=== PATIENT | female | born 1955 | race Caucasian/White ===

== ENCOUNTER → 2018-10-13 08:55 | Outpatient (CLI) | payer BC, SELFPAY ==
--- NOTE | 2018-10-13 08:59 | MM_ITS ---
MM Dig screening mamm BI w/CAD CAD Screening COMPARISON: Digital mammograms with CAD 02/24/2017 and 02/18/2016 INDICATION: There is a history of breast cancer in patient's mother diagnosed before menopause. TECHNIQUE: Standard CC and MLO images were obtained. R2 CAD reviewed. FINDINGS: Moderate somewhat heterogenic fibroglandular densities are seen in the central portions of both breast and the findings are bilateral and symmetrical. There is no suspicious lesion and there are no suspicious microcalcifications. IMPRESSION: Moderate breast density with no suspicious lesion seen BI-RADS Category: 1 Negative RECOMMENDED FOLLOW-UP: 1YR - 1 YEAR FOLLOW-UP (A letter has been sent to the patient regarding results of the study.)
== END ==
PROVIDERS: PCP Nurse Practitioner Family; Visit Provider Nurse Practitioner Family
DX: Z12.31 Encounter for screening mammogram for malignant neoplasm of breast (principal)
CPT/HCPCS: 77067

== ENCOUNTER → 2019-08-23 09:04 | Outpatient (CLI) | payer BC, SELFPAY ==
[2019-08-23 15:17] LABS: Basophils # 0.1 K/mm3 (0-0.2); Basophils % 0.9 % (0.1-2.0); Eosinophils # 0.1 K/mm3 (0.0-0.4); Eosinophils % 1.9 % (0.1-12.0); Hematocrit 38.2 % (37.0-47.0); Lymphocytes # 1.5 K/mm3 (0.7-4.5); Lymphocytes % 23.2 % (10-50); Mean Corpuscular HGB Conc 31.3 g/dL (31.8-35.4); Mean Corpuscular Hemoglobin 27.9 pg (27.0-31.2); Mean Platelet Volume 8.7 fl (7.4-10.4); Monocytes # 0.5 K/mm3 (0.1-1.0); Monocytes % 7.9 % (1.7-9.3); Neutrophils # 4.3 K/mm3 (1.8-7.8); Neutrophils % 66.1 % (37.0-80.0); Platelet Count 344 K/mm3 (142-424); Red Blood Count 4.29 M/mm3 (4.20-5.40); Red Cell Distribution Width 13.7 % (11.5-17.5); White Blood Count 6.5 K/mm3 (4.8-10.8)
[2019-08-23 15:30] LABS: Alanine Aminotransferase 19 U/L (12-78); Albumin Level 4.4 g/dl (3.5-5.0); Albumin/Globulin Ratio 1.8 (1.1-1.8); Alkaline Phosphatase 60 U/L (38-126); Anion Gap 9.1 mEq/L (5-15); Aspartate Amino Transferase 23 U/L (14-36); Bilirubin,Total 0.4 mg/dl (0.2-1.3); Blood Urea Nitrogen 19 mg/dl (7-17); Calcium 9.7 mg/dl (8.4-10.2); Carbon Dioxide 32 mmol/L (22.0-30.0); Chloride 102 mmol/L (98-107); Chol/HDL Ratio 2.1 (1-3.5); Cholesterol 132 mg/dl (140-200); Estimated Glomerular Filt Rate 73 ml/min (>60); GFR (African American) 88 ML/MIN (>60); Globulin 2.4 g/dL (1.3-3.2); Glucose 105 mg/dl (74-100); HDL Cholesterol 63 mg/dl (40-60); Potassium 4.1 mmoL/L (3.5-5.1); Sodium 139 mmol/L (136-145); Total Protein,Serum 6.8 g/dl (6.3-8.2); Triglycerides 69 mg/dl (30-150); VLDL Cholesterol 14 mg/dL (0-40)
[2019-08-23 16:00] LABS: Thyroid Stimulating Hormone 1.67 uIU/mL (0.465-4.68)
[2019-08-23 21:06] LABS: Direct LDL Cholesterol 78.56 mg/dL (100-129)
== END ==
PROVIDERS: Visit Provider Nuclear Medicine Nuclear Cardiology
DX: I48.92 Unspecified atrial flutter (principal)
CPT/HCPCS: 36415; 80053; 80061; 84443; 85025

== ENCOUNTER → 2019-10-24 10:22 | Outpatient (CLI) | payer BC, SELFPAY ==
--- NOTE | 2019-10-24 10:26 | MM_ITS ---
PROCEDURE: MM DIG SCREENING MAMM BI W/CAD Digital Breast Tomosynthesis Included CLINICAL INDICATION: SCREENING There is a history of breast cancer in the patient's mother diagnosed in her 50s. COMPARISON: DMSB DIG MAMM-SCREEN SIGRID from 02/18/2016 DMSB DIG MAMM-SCREEN SIGRID W/CAD from 02/24/2017 DIG MAMM-SCREEN SIGRID from 10/13/2018 TECHNIQUE: Standard CC and MLO images and 3D Tomosynthesis was obtained. R2 CAD reviewed. FINDINGS: Moderate somewhat heterogenic fibroglandular densities are seen in the central portions of both breasts there is a benign-appearing calcification left breast. There is no suspicious lesion and no suspicious microcalcifications. IMPRESSION: Moderate breast density with no suspicious lesions seen BI-RAD Category: 2 Benign Finding(s) FOLLOW-UP: 1YR 1 Year Follow-up (A letter has been sent to the patient regarding results of the study.) Dictated by: Dr. Kaveh Barragan MD 10/26/2019 16:[address] Kaveh Barragan MD in [place] 10/26/2019 16:38
== END ==
PROVIDERS: PCP Nurse Practitioner Family; Visit Provider Nurse Practitioner Family
DX: Z12.31 Encounter for screening mammogram for malignant neoplasm of breast (principal)
CPT/HCPCS: 77063; 77067

== ENCOUNTER 2019-12-27 16:00 | Outpatient (RCR) | payer BC, SELFPAY | END 2019-12-27 17:00 | disposition home or self-care (01) | LOC: PT.CARL 16:00 | PROVIDERS: Visit Provider Anesthesiology Pain Medicine | DX: M43.16 Spondylolisthesis, lumbar region (principal) | CPT/HCPCS: 97033; 97035; 97110; 97116; 97140; 97163; 97164 ==

== ENCOUNTER 2020-04-02 17:00 | Outpatient (RCR) | payer BC, SELFPAY | END 2020-04-02 18:00 | disposition home or self-care (01) | LOC: PT.CARL 17:00 | PROVIDERS: PCP Nurse Practitioner Family; Visit Provider Anesthesiology Pain Medicine | DX: M48.061 Spinal stenosis, lumbar region without neurogenic claudication (principal) | CPT/HCPCS: 97110; 97140; 97163 ==

== ENCOUNTER → 2020-09-05 14:12 | Outpatient (CLI) | payer BC, SELFPAY ==
[2020-09-05 16:04] LABS: Chloride 105 mmol/L (98-107); Potassium 4.3 mmoL/L (3.5-5.1); Sodium 139 mmol/L (136-145)
[2020-09-05 16:06] LABS: Alanine Aminotransferase 21 U/L (12-78); Aspartate Amino Transferase 26 U/L (14-36); Blood Urea Nitrogen 20 mg/dl (7-17); Estimated Glomerular Filt Rate 85 ml/min (>60); GFR (African American) 102 ML/MIN (>60)
[2020-09-05 16:07] LABS: Albumin Level 4.5 g/dl (3.5-5.0); Albumin/Globulin Ratio 1.9 (1.1-1.8); Alkaline Phosphatase 81 U/L (38-126); Anion Gap 10.3 mEq/L (5-15); Bilirubin,Total 0.7 mg/dl (0.2-1.3); Calcium 9.2 mg/dl (8.4-10.2); Carbon Dioxide 28 mmol/L (22.0-30.0); Chol/HDL Ratio 2.6 (1-3.5); Cholesterol 152 mg/dl (140-200); Globulin 2.4 g/dL (1.3-3.2); Glucose 96 mg/dl (74-100); HDL Cholesterol 58 mg/dl (40-60); Total Protein,Serum 6.9 g/dl (6.3-8.2); Triglycerides 77 mg/dl (30-150); VLDL Cholesterol 15 mg/dL (0-40)
[2020-09-05 16:18] LABS: Direct LDL Cholesterol 73.48 mg/dL (100-129)
== END ==
PROVIDERS: Visit Provider Nurse Practitioner Family
DX: I10 Essential (primary) hypertension (principal); E78.2 Mixed hyperlipidemia
CPT/HCPCS: 80053; 80061

== ENCOUNTER 2020-10-31 11:00 | Outpatient (RCR) | payer BC, SELFPAY | END 2020-11-27 11:05 | disposition home or self-care (01) | LOC: PT.CARL 11:00 | PROVIDERS: PCP Nurse Practitioner Family; Visit Provider Orthopaedic Surgery | DX: M16.12 Unilateral primary osteoarthritis, left hip; Z96.642 Presence of left artificial hip joint | CPT/HCPCS: 97010; 97110; 97116; 97140; 97163 ==

== ENCOUNTER → 2020-11-06 10:22 | Outpatient (CLI) | payer BC, SELFPAY ==
--- NOTE | 2020-11-06 10:26 | MM_ITS ---
PROCEDURE: MM DIG SCREENING MAMM BI W/CAD Digital Breast Tomosynthesis Included CLINICAL INDICATION: SCREENING COMPARISON: MG DMSB DIG MAMM-SCREEN SIGRID W/CAD from 02/24/2017 MG DIG MAMM-SCREEN SIGRID from 10/13/2018 MG MM DIG SCREENING MAMM BI W/CAD from 10/24/2019 TECHNIQUE: Standard CC and MLO images and 3D Tomosynthesis was obtained. R2 CAD reviewed. FINDINGS: There is average fibroglandular tissue. No malignant appearing mass or malignant-appearing microcalcification. No skin thickening or architectural distortion. IMPRESSION: Negative. No change with no evidence of malignancy BI-RAD Category: 1 Negative FOLLOW-UP: 1 YR 1 Year Follow-up (A letter has been sent to the patient regarding results of the study.) Dictated by: Yadiel Hodge MD 11/09/2020 18:16 Yadiel Hodge MD in [place] 11/09/2020 18:16
== END ==
PROVIDERS: PCP Nurse Practitioner Family; Visit Provider Nurse Practitioner Family
DX: Z12.31 Encounter for screening mammogram for malignant neoplasm of breast (principal)
CPT/HCPCS: 77063; 77067

== ENCOUNTER → 2021-01-30 16:54 | Outpatient (CLI) | payer BC, SELFPAY ==
[2021-01-30 17:04] LABS: Basophils # 0.1 K/mm3 (0-0.2); Basophils % 0.7 % (0.1-2.0); Eosinophils # 0.1 K/mm3 (0.0-0.4); Eosinophils % 1.7 % (0.1-12.0); Hematocrit 42.2 % (37.0-47.0); Lymphocytes # 1.5 K/mm3 (0.7-4.5); Lymphocytes % 19.5 % (10-50); Mean Corpuscular HGB Conc 30.9 g/dL (31.8-35.4); Mean Corpuscular Hemoglobin 28.1 pg (27.0-31.2); Mean Corpuscular Volume 91.1 fl (81-99); Mean Platelet Volume 8.7 fl (7.4-10.4); Monocytes # 0.6 K/mm3 (0.1-1.0); Monocytes % 7.5 % (1.7-9.3); Neutrophils # 5.3 K/mm3 (1.8-7.8); Neutrophils % 70.6 % (37.0-80.0); Platelet Count 365 K/mm3 (142-424); Red Blood Count 4.63 M/mm3 (4.20-5.40); Red Cell Distribution Width 13.4 % (11.5-17.5); White Blood Count 7.6 K/mm3 (4.8-10.8)
[2021-01-30 17:31] LABS: Chloride 103 mmol/L (98-107); Sodium 143 mmol/L (136-145)
[2021-01-30 17:32] LABS: Potassium 4.1 mmoL/L (3.5-5.1)
[2021-01-30 17:34] LABS: Alanine Aminotransferase 20 U/L (12-78); Albumin Level 3.7 g/dl (3.5-5.0); Alkaline Phosphatase 83 U/L (38-126); Anion Gap 12.1 mEq/L (5-15); Aspartate Amino Transferase 27 U/L (14-36); Bilirubin,Total 0.2 mg/dl (0.2-1.3); Blood Urea Nitrogen 12 mg/dl (7-17); Carbon Dioxide 32 mmol/L (22.0-30.0); Estimated Glomerular Filt Rate 101 ml/min (>60); GFR (African American) 122 ML/MIN (>60)
[2021-01-30 17:35] LABS: Albumin/Globulin Ratio 1.4 (1.1-1.8); Calcium 8.9 mg/dl (8.4-10.2); Globulin 2.6 g/dL (1.3-3.2); Glucose 95 mg/dl (74-100); Total Protein,Serum 6.3 g/dl (6.3-8.2)
[2021-01-30 18:11] LABS: Ferritin 36.8 ng/ml (11.1-264)
== END ==
PROVIDERS: Visit Provider Nurse Practitioner Family
DX: K92.1 Melena (principal)
CPT/HCPCS: 80053; 82728; 85025

== ENCOUNTER → 2021-11-14 08:26 | Outpatient (CLI) | payer MEDICARE, SELFPAY ==
--- NOTE | 2021-11-14 08:27 | MM_ITS ---
PROCEDURE INFORMATION: Exam: MG Bilateral Screening 3D Mammography Exam date and time: 11/14/2021 8:23 AM Age: 66 years old Clinical indication: Screening mammogram. TECHNIQUE: Imaging protocol: Bilateral Screening tomosynthesis and 2D mammography including computer-aided detection (CAD) when performed. COMPARISON: 1. MG MM DIG SCREENING MAMM BI W/CAD 11/06/2020 10:26 AM 2. MG MM DIG SCREENING MAMM BI W/CAD 10/24/2019 10:52 AM 3. MG DIG MAMM-SCREEN SIGRID 10/13/2018 9:19 AM 4. MG DMSB DIG MAMM-SCREEN SIGRID W/CAD 02/24/2017 5:02 PM FINDINGS: MAMMOGRAPHY: Breast composition: There are scattered areas of fibroglandular density. Mass: None. Architectural distortion: No new or suspicious architectural distortion. Calcifications: No new or suspicious calcifications are present Asymmetric density: No new or suspicious asymmetric density is present Skin thickening: None. Axillary adenopathy: None. IMPRESSION: No mammographic evidence of malignancy. Recommend annual screening mammography unless otherwise clinically indicated. ASSESSMENT: BI-RADS category 1: Negative
== END ==
PROVIDERS: PCP Nurse Practitioner Family; Visit Provider Nurse Practitioner Family
DX: Z12.31 Encounter for screening mammogram for malignant neoplasm of breast (principal)
CPT/HCPCS: 77063; 77067

== ENCOUNTER → 2022-01-13 10:51 | Outpatient (CLI) | payer MEDICARE, SELFPAY | PROVIDERS: PCP Nurse Practitioner Family; Visit Provider Surgery | DX: Z01.812 Encounter for preprocedural laboratory examination (principal); Z20.822 Contact with and (suspected) exposure to COVID-19; Z12.11 Encounter for screening for malignant neoplasm of colon | CPT/HCPCS: C9803; U0003; U0005 ==

== ENCOUNTER 2022-01-14 07:06 | Day surgery (SDC) | payer MEDICARE, SELFPAY ==
[2022-01-10 14:45] VITALS: BMI 26.2
[2022-01-14] VITALS (7 sets, daily range): BP systolic 107–124; BP diastolic 60–82; PULSE 62–75; RESP 16; TEMP 36.1–36.3; O2SAT 96–100
--- NOTE | 2022-01-14 07:49 | P.PN_ITS ---
[facility] Medical History Anxiety Colonoscopy planned Fibromyalgia History of gastroesophageal reflux (GERD) Hyperlipidemia Hypertension Menopause Sleep apnea Surgical History History of hip replacement, total History of hysterectomy Family History Mother Breast cancer Grandmother Diabetes type 2, controlled Father Lung cancer Social History (Updated 01/14/22 @ 07:37 by Melinda Frost, RN) Smoking Status: Never smoker alcohol intake: never substance use type: denies use current occupational status: retired Travel in the last 8 weeks: None caffeine: No [facility] Anesthesia Checklist Patient Identification Patient Identification: Arm Band Structural Data Admitted From: Home Planned Operative Procedure/s: colonoscopy Consent for Planned Operative Procedure(s) Verified: Yes Verified Documents: Surgical Consent and History and Physical NPO Status Verified Time NPO: 00:00 Additional verifications Anesthesia Reactions: No Airway Assessment C-Spine Mobility Assessed: Yes TMJ Mobility Assessed: Yes Dentition: Good Dentition Neurological Assessment Level of Consciousness: Awake and Alert Anesthesia Plan Anesthesia Risk discussed: Yes Anesthesia Plan: Verified ASA Class: II Anesthesia Type: MAC
--- NOTE | 2022-01-14 08:31 | HMH.SCOPE ---
Procedure: Date: 01/14/22 Patient Date of :: 1955 Procedure Performed:: Colonoscopy with polypectomy Indications:: Screening Performing Provider:: Steven Luna MD Referring Provider:: . Sedation:: Monitored anesthesia care Procedure:: After informed consent was obtained the patient was taken to the endoscopy suite. Sedation ensued after the patient was transferred to the left lateral decubitus position. Pulse, blood pressure, and oxygen saturation were monitored throughout the procedure. Digital rectal exam revealed no significant abnormality. The colonoscope was placed in position. The entire colon was evaluated. The colonoscope was carefully removed and the patient was transferred to recovery in stable condition. Please see findings and specimens below for detail. Findings:: Bowel preparation fair Hemorrhoidal cushions/tags Severe sigmoid tortuosity Moderate to severe lack of relaxation Sessile cecal polyp Specimens:: Sessile cecal polyp (cold snare and cold biopsy forceps) Recommendations:: Consider barium enema secondary to fairly profound sigmoid tortuosity and fairly significant lack of relaxation Repeat colonoscopy is pending pathology but will likely be around 3 years. Complications:: No immediate Estimated blood obtained (mL): 1
== END 2022-01-14 09:26 | disposition home or self-care (01) ==
PROVIDERS: PCP Nurse Practitioner Family; Visit Provider Surgery
PROC: 0DJD8ZZ Inspection of Lower Intestinal Tract, Via Natural or Artificial Opening Endoscopic (ICD-10-PCS; principal; 2022-01-14 08:00)
DX: Z12.11 Encounter for screening for malignant neoplasm of colon (principal); D12.0 Benign neoplasm of cecum; Z79.899 Other long term (current) drug therapy
CPT/HCPCS: 45380; 45385

== ENCOUNTER 2022-01-25 13:54 | Emergency (ER) | payer MEDICARE, SELFPAY ==
[2022-01-25 14:40] VITALS: BP 131/84; PULSE 85; RESP 19; TEMP 37.2; O2SAT 98; BMI 25.9
--- NOTE | 2022-01-25 15:16 | EXP.UTC ---
Discharge Plan Disposition Patient Disposition: Home, Self-Care Condition: Good Prescriptions Prescriptions: New azithromycin [Zithromax Z-Héctor] 250 mg tablet See Rx Instructions .ROUTE .COMPLEX 5 Days Qty: 6 0RF Rx Instructions: For 250 mg dose pack: take 500 mg today (day 1), then 250 mg for 4 days (days 2-5) No Action buspirone 5 mg Tablet 5 mg PO BID bisoprolol fumarate 5 mg Tablet 5 mg PO DAILY omeprazole 20 mg Capsule,Delayed Release(Dr/Ec) 20 mg PO DAILY rosuvastatin 5 mg Tablet 5 mg PO DAILY bupropion HCl 300 mg Tablet Extended Release 24 Hr 300 mg PO DAILY gabapentin 300 mg Tablet 300 mg PO BID Referrals Follow up/Referrals: Cristela Frost APRN [Primary Care Provider] - See instructions Activity Restrictions/Add. Instructions Additional Instructions/Restrictions: *Monitor Temp, Over the counter Motrin or Tylenol as directed/as needed Tylenol every 4 hours and Motrin every 6 hours (as long as your family doctor has told you that you can take it) for fever or pain. and straight to ER if unable to lower temp less than 101.0 after medication given *Warm salt water gargles may help to soothe the throat *Throat Lozenges? *Warm fluids like tea with honey may help to soothe the throat? *Sleep elevated *Humidifier/Vaporizer Follow up IMMEDIATELY for new or worsening symptoms or no Noticeable improvement over the next 48-72 hours. 911 for difficulty breathing or swallowing Clinical Impressions Clinical Impression: URI (upper respiratory infection) Qualifiers: URI type: unspecified URI Qualified Code(s): J06.9 - Acute upper respiratory infection, unspecified Instructions Patient Instructions: Sore Throat, DI for Nasal Congestion Discharge ED Provider: Yadira Truong [facility] General Stated complaint: HANSON, Head congestion, cough Mode of Arrival: Ambulatory Source of Information: Patient Limitations: No Limitations Time Seen by Provider: 01/25/22 15:16 Description of Symptoms (Recalled from Triage Doc. by RN): PATIENT C/O HEDACHE, SINUS PRESSURE, COUGH, AND BODY ACHES SINCE YESTERDAY HEENT Symptoms (Recalled from RN notes): No Resp Symptoms (Recalled from RN notes): Yes Skin Symptoms (Recalled from RN notes): No MS Symptoms (Recalled from RN notes): No Functional Status (Recalled from RN notes): WNL History of Present Illness Provider Complaint: Patient states that she has been having scratchy throat, sinus congestion cough and body aches since yesterday that has continued to get worse States that today she was feeling pressure behind her eyes and feeling worse States that she had COVID test yesterday but results not back yet but home test was negative States that she came in hoping to get a shot to help her Related Data Home Medications Medication Instructions Recorded Confirmed bisoprolol fumarate 5 mg tablet 5 mg PO DAILY High blood pressure 01/10/22 01/22/22 bupropion HCl 300 mg 24 hr tablet, 300 mg PO DAILY anxiety 01/10/22 01/22/22 extended release buspirone 5 mg tablet 5 mg PO BID Anxiety 01/10/22 01/22/22 gabapentin 300 mg tablet 300 mg PO BID Pain 01/10/22 01/22/22 omeprazole 20 mg capsule,delayed 20 mg PO DAILY GERD 01/10/22 01/22/22 release rosuvastatin 5 mg tablet 5 mg PO DAILY Cholesterol 01/10/22 01/22/22 Previous Rx's Medication Instructions Recorded azithromycin 250 mg tablet See Rx Instructions PO .COMPLEX 5 01/25/22 (Zithromax Z-Héctor) days #6 tabs Allergies Allergy/AdvReac Type Severity Reaction Status Date / Time No Known Drug Allergies Allergy Unknown Verified 01/22/22 10:03 [NO KNOWN DRUG ALLERGIES] Worker's Comp Is this a Worker's Comp case?: No PFSH PFSH Medical History (Updated 01/25/22 @ 15:25 by Yadira Truong APRN) Anxiety Colonoscopy planned Fibromyalgia History of gastroesophageal reflux (GERD) Hyperlipidemia Hypertension Menopause Sleep apnea Surgical
[2022-01-25 15:42] VITALS: BP 131/84; PULSE 85; RESP 19; TEMP 37.2; O2SAT 98
== END 2022-01-25 16:05 | disposition home or self-care (01) ==
PROVIDERS: Emergency Provider Nurse Practitioner; PCP Nurse Practitioner Family
DX: J06.9 Acute upper respiratory infection, unspecified (principal)
CPT/HCPCS: 96372; 99212; G0463; J0696

== ENCOUNTER → 2022-03-21 07:57 | Outpatient (CLI) | payer MEDICARE, SELFPAY ==
--- NOTE | 2022-03-21 07:57 | FL_ITS ---
FINAL REPORT CLINICAL HISTORY: f/u polyps, unsuccessful colonoscopy ft: 4:39 FINDINGS: BARIUM ENEMA HISTORY: Incomplete colonoscopy, history of colon polyps. PROCEDURE: Barium contrast was instilled via a rectal catheter into the patient's colon via gravity drip. Spot and overhead films were performed. FINDINGS: Pow[employer] Blender [employer] Pourer film demonstrates postoperative changes of total left hip arthroplasty. Powder Blender [employer] Pourer film is otherwise unremarkable. Patient has a redundant colon. There is spasm noted on some images in the left colon. There is no constricting or obstructing lesion identified to the level of the cecum. Postevacuation images are unremarkable. FLUOROSCOPY TIME: 4 minutes 39 seconds. IMAGE NUMBER: 32 IMPRESSION: No mass or stricture identified. Reviewed, Interpreted and Dictated by Jaden Almazan III, MD Transcribed by Rylee Samuel PA-C Authenticated and [facility]
== END ==
PROVIDERS: PCP Nurse Practitioner Family; Visit Provider Surgery
DX: K63.5 Polyp of colon (principal)
CPT/HCPCS: 74270

== ENCOUNTER → 2023-02-23 10:28 | Outpatient (CLI) | payer MEDICARE, SELFPAY ==
--- NOTE | 2023-02-23 10:45 | MM_ITS ---
PROCEDURE INFORMATION: Exam: MG Bilateral Screening 3D Mammography Exam date and time: 02/23/2023 10:35 AM Age: 67 years old Clinical indication: Screening examination TECHNIQUE: Imaging protocol: Bilateral Screening tomosynthesis and 2D mammography including computer-aided detection (CAD) when performed. COMPARISON: 1. MG MM DIG SCREENING MAMM BI W/CAD 11/14/2021 8:23 AM 2. MG MM DIG SCREENING MAMM BI W/CAD 11/06/2020 10:26 AM FINDINGS: MAMMOGRAPHY: Breast composition: The breasts are heterogeneously dense, which may obscure small masses. Mass: None. Architectural distortion: None. Calcifications: No suspicious calcifications. Asymmetric density: None. Skin thickening: None. Axillary adenopathy: None. IMPRESSION: No mammographic evidence of malignancy. Annual screening is recommended unless otherwise clinically indicated. ASSESSMENT: BI-RADS Category 1: Negative
== END ==
PROVIDERS: PCP Nurse Practitioner Family; Visit Provider Nurse Practitioner Family
DX: Z12.31 Encounter for screening mammogram for malignant neoplasm of breast (principal)
CPT/HCPCS: 77063; 77067

== ENCOUNTER 2023-09-23 13:33 | Emergency (ER) | payer OTHER, SELFPAY ==
--- NOTE | 2023-09-23 13:37 | ECG_ITS ---
APPROVED REPORT Exam: Resting ECG HR:82 bpm ECG Measurements Heart Rate 82 AXES MA 145 P 40 QRSd 145 QRS 61 QT 416 T 8 QTc 455 Conclusion SINUS RHYTHM RIGHT BUNDLE BRANCH BLOCK [120+ ms QRS DURATION, UPRIGHT V1, 40+ ms S IN I/aVL/V4/V5/V6] ABNORMAL ECG UNCONFIRMED REPORT Electronically signed by : Roland Mckeon, 09/23/2023 15:38:28
[2023-09-23 13:42] VITALS: BMI 26.5
[2023-09-23 13:52] VITALS: BP 145/88; PULSE 90; RESP 20; TEMP 36.8; O2SAT 98
[2023-09-23 13:58] VITALS: BP 145/88; PULSE 82; O2SAT 99
[2023-09-23 14:01] VITALS: BP 154/93; PULSE 86; O2SAT 97
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
--- NOTE | 2023-09-23 14:14 | PC.NURSE ---
pt going with RAD
[2023-09-23 14:19] LABS: Chloride 105 mmol/L (98-107); Potassium 3.9 mmoL/L (3.5-5.1); Sodium 140 mmol/L (136-145)
[2023-09-23 14:22] LABS: Alanine Aminotransferase 33 U/L (12-78); Albumin Level 3.8 g/dl (3.5-5.0); Albumin/Globulin Ratio 1.5 (1.1-1.8); Alkaline Phosphatase 69 U/L (38-126); Anion Gap 10.9 mEq/L (5-15); Aspartate Amino Transferase 33 U/L (14-36); Bilirubin,Total 0.4 mg/dl (0.2-1.3); Blood Urea Nitrogen 18 mg/dl (7-17); Calcium 9.1 mg/dl (8.4-10.2); Carbon Dioxide 28 mmol/L (22.0-30.0); Creatinine Clearance Estimated 59 mL/min (50-200); Estimated Glomerular Filt Rate 72 ml/min (>60); GFR (African American) 87 ML/MIN (>60); Globulin 2.5 g/dL (1.3-3.2); Glucose 131 mg/dl (74-100); Lipase 59 U/L (23-300); Total Protein,Serum 6.3 g/dl (6.3-8.2)
[2023-09-23 14:23] LABS: Basophils # 0.1 K/mm3 (0-0.2); Basophils % 0.9 % (0.1-2.0); Eosinophils # 0.1 K/mm3 (0.0-0.4); Hematocrit 40.1 % (37.0-47.0); Lymphocytes # 1.9 K/mm3 (0.7-4.5); Lymphocytes % 27.5 % (10-50); Mean Corpuscular HGB Conc 32.5 g/dL (31.8-35.4); Mean Corpuscular Hemoglobin 29.3 pg (27.0-31.2); Mean Corpuscular Volume 89.9 fl (81-99); Mean Platelet Volume 8.2 fl (7.4-10.4); Monocytes # 0.4 K/mm3 (0.1-1.0); Neutrophils # 4.3 K/mm3 (1.8-7.8); Neutrophils % 63.6 % (37.0-80.0); Platelet Count 355 K/mm3 (142-424); Red Blood Count 4.46 M/mm3 (4.20-5.40); Red Cell Distribution Width 14.3 % (11.5-17.5); White Blood Count 6.8 K/mm3 (4.8-10.8)
[2023-09-23] MEDS: SODIUM CHLORIDE 0.9% 10ML SYR (RAD ONLY) 10 ML IV (14:26)
[2023-09-23] MEDS: 0.9 % SODIUM CHLORIDE 50 ML VIAL 100 ML IV (14:26)
[2023-09-23] MEDS: IOPAMIDOL-370 (76%);100ML BOTTLE 140 ML IV (14:26)
[2023-09-23] MEDS: LACTATED RINGERS 1000ML 1,000 ML 999 ML IV (14:27)
[2023-09-23] MEDS: MORPHINE 4MG/ML SYRINGE 4 MG IV (14:27)
[2023-09-23] MEDS: ONDANSETRON 4MG/2ML VIAL 4 MG IV (14:27)
[2023-09-23 14:28] LABS: Activated Partial Thrombo Time 23.1 seconds (22.8-30.6); INR 0.96 (0.9-1.1); Prothrombin Time 10.4 seconds (10.1-12.5)
[2023-09-23 14:48] LABS: Troponin I < 0.01 ng/ml (0.00-0.034)
[2023-09-23 14:57] LABS: Microscopic, Urine URINE MICROSCOPIC (MICROSCOPIC)
[2023-09-23 15:01] LABS: Appearance,Urine CLEAR (Clear); Bilirubin,Urine Negative (Negative); Blood, Urine Negative (Negative); Color,Urine YELLOW (Yellow); Glucose,Urine (UA) Negative (Negative); Ketones,Urine Negative (Negative); Leukocyte Esterase,Urine Negative (Negative); Nitrate,Urine Negative (Negative); PH,Urine 6.5 (5.0-8.5); Protein,Urine Negative (Negative); Urobilinogen,Urine 0.2 EU/dl (0.2)
[2023-09-23 16:51] VITALS: BP 162/94; PULSE 85; RESP 16; TEMP 36.7
== END 2023-09-23 16:59 | disposition home or self-care (01) ==
PROVIDERS: Student in an Organized Health Care Education/Training Program; Emergency Provider Emergency Medicine; PCP Nurse Practitioner Family
DX: R07.9 Chest pain, unspecified (principal); I45.19 Other right bundle-branch block; M79.632 Pain in left forearm; M79.661 Pain in right lower leg; M79.662 Pain in left lower leg; K21.9 Gastro-esophageal reflux disease without esophagitis; I10 Essential (primary) hypertension; E78.5 Hyperlipidemia, unspecified; V49.40XA Driver injured in collision with unspecified motor vehicles in traffic accident, initial encounter; Y92.410 Unspecified street and highway as the place of occurrence of the external cause
CPT/HCPCS: 70450; 70496; 70498; 71275; 72125; 72128; 72131; 74174; 80053; 81001; 83690; 84484; 85025; 85610; 85730; 93005; 96361; 96374; 96375; 99285; J2270; J2405; J7120; Q9967

== ENCOUNTER 2024-05-13 10:58 | Outpatient (CLI) | payer MEDICARE, SELFPAY ==
--- NOTE | 2024-05-13 | MM_ITS ---
PROCEDURE INFORMATION: Exam: MG Bilateral Screening 3D Mammography Exam date and time: 05/13/2024 11:05 AM Age: 68 years old Clinical indication: Screening examination TECHNIQUE: Imaging protocol: Bilateral Screening tomosynthesis and 2D mammography including computer-aided detection (CAD) when performed. COMPARISON: 1. MG MM DIG SCREENING MAMM BI W/CAD 02/23/2023 10:35 AM 2. MG MM DIG SCREENING MAMM BI W/CAD 11/14/2021 8:23 AM FINDINGS: MAMMOGRAPHY: Breast composition: The breasts are heterogeneously dense, which may obscure small masses. Mass: No suspicious masses. Architectural distortion: None. Calcifications: No suspicious calcifications. Asymmetric density: None. Skin thickening: None. Axillary adenopathy: None. IMPRESSION: No mammographic evidence of malignancy. Annual screening is recommended unless otherwise clinically indicated. ASSESSMENT: BI-RADS Category 1: Negative.
== END 2024-05-13 23:59 | disposition home or self-care (01) ==
LOC: RAD 10:58
PROVIDERS: PCP Nurse Practitioner Family; Visit Provider Nurse Practitioner Family
DX: Z12.31 Encounter for screening mammogram for malignant neoplasm of breast (principal)
CPT/HCPCS: 77063; 77067

== ENCOUNTER 2024-11-12 10:43 | Outpatient (CLI) | payer MEDICARE, SELFPAY ==
--- OUTSIDE RECORDS SUMMARY | 2024-09-20 11:00 | XMS_ITS | Encounter Summary ---
[facility] Address [address] [place] [address] Care Team Providers Care Medical Physics Researcher Name Role Phone Cristela Frost APRN Primary Care Provid er Reason for Referral * Durable Medical Equipment (Routine) - Authorized Specialty Diagnoses / Procedures Referred By Ramona myles Referred To Contact Diagnoses DORIAN (obstructive sleep apnea) Procedures PAP Therapy Alexandra Manzano APRN [address] [place] [address] Phone: tel: fax: [place] [address] Phone: tel: fax: Referral ID Status Reason Start Date Expiration Date V isits Requested Visits Authorized [id number] Authorized 09/20/2024 12/20/2025 1 1 Reason for Visit * Reason Comments Sleep Apnea Pt states that she g ot a new pap machine in 2022. She is needing a supply order. Encounter Details Date Type Department Care Team (Late Contact Info) Description 09/20/2024 11:00 AM EDT Office Visit [facility] [address] [place] [phone] Alexandra Manzano APRN [address] [place] [address] DORIAN (obstructive sleep apnea); Primary hypertension Social History Tobacco Use Types Packs/Day Years Used Date Smoking Tobacco: Never Smokeless Tobacco: Never Alcohol Use Standard Drinks/Week Comments Defer 0 (1 standard drink = 0.6 oz pur e alcohol) PHQ-2 Answer Date Recorded Retired Total Score 0 07/17/2020 Comments No Sex and Gender Information Value Date Recorded Sex Assigned at Not on file Legal Sex Female 1:38 PM EDT Gender Identity Not on file Sexual Orientation Not on file documented as of this encounter Last Filed Vital Signs Vital Sign Reading Time Taken Comments Blood Pressure 122/76 09/20/2024 11:10 AM EDT Pulse 62 09/20/2024 11:10 AM EDT Temperature - - Respiratory Rate - - Oxygen Saturation 100% 09/20/2024 11:10 AM EDT Inhaled Oxygen Concentration - - Weight 71.5 kg (157 lb 9.6 oz) 09/20/2024 11:10 AM EDT Height 157.5 cm (5' 2 ) 09/20/2024 11:10 AM EDT Body Mass Index 28.83 09/20/2024 11:10 AM EDT documented in this encounter Progress Notes * Alexandra Manzano APRN - 09/20/2024 4:09 PM EDTAssociated Problem(s): HTN (hypertension) Hypertension is stable and controlled Continue current treatment regimen. Blood pressure will be reassessed in 1 year. * Alexandra Manzano APRN - 09/20/2024 4:09 PM EDTAssociated Problem(s): DORIAN (obstructive sleep apnea) Benefiting from PAP therapy. Plan to continue. * Alexandra Manzano APRN - 09/20/2024 11:00 AM EDT Images from the original note were not included. Date: 09/20/2024 Name: Hailey Greenfield : 1955 PCP: Cristela Frost APRN Sleep and/or Cardiology Consulting Note History of Present Illness Hailey Greenfield is a 68 y.o. female who presents today for Sleep Apnea (Pt states that she got a newpap machine in 2022. She is needing a supply order. ) -DL good -1 yr DORIAN -[facility] Reports Denies Excessive daytime sleepiness [] [x] Snoring [] [x] Traffic accidents or near missed related to sleepiness [] [x] Feels like QOL has improved due to treatment [x] [] Machine, Mask, airflow Comfortable and working well? [x] [] Using pap machine? [x] [] Using oxygen at night? [] [x] Provider feels patient is benefiting from pap therapy [x] [] Provider sent supply order to DME of choice [x] [] Provider made pressure changes today [] [x] Cardiology and sleep related problem list 1. DORIAN-baseline AHI of 12 07/27/2012 2. Hyperlipidemia 3. Hypertension 4. Pulmonary hypertension 5. Anxiety 6. Palpitations 7. Shortness of air 8. GERD 9. Non-smoker 08/02/2019 echo-normal EF 08/02/2019 Holter 07/11/2019 overnight pulse ox 07/27/2012 sleep study Lifestyle interventions to improve sleep apnea include sleeping on your side, using a bed wedge to slightly raise the head of your bed, avoiding alcohol/sedatives/heavy meals, exercising and losing weight (if needed), as well as practicing good sleep hygiene. Serious risks are associated with sleep apnea such as increased risk for car and work accidents, sleep , medical risks, and surgical risks. Always tell your healthcare providers/surgeons you have sleep apnea before having surgery.The complex interaction of sleep disorders with numerous disease processes including hypertension, insulin resistance-diabetes, obesity, weight gain and mood disorders were reviewed. Relationship between untreated sleep disorders and cardiovascular events, including life-threatening arrhythmias, coronary artery disease, congestive heart failure, and pulmonary hypertension, neurological sequela (such as dementia) and decreased life longevity. To see the most benefit from your pap machine therapy you need to use your machine over 70% of the night each month and over 4 hours 70% of the time. This also make your insurance happy. Treatment options include pap machine, Inspire, and other surgical interventions. NEVER DRIVE TIRED. The patient's relevant past medical, surgical, family, and social history reviewed and updated in [facility] as appropriate. Medications Discontinued During This Encounter Medication Reason meloxicam (MOBIC) 15 MG tablet *Therapy completed tiZANidine (ZANAFLEX) 2 MG tablet *Therapy completed No Known Allergies Current Outpatient Medications: aspirin 81 MG EC tablet, Take 1 tablet by mouth 2 (Two) Times a Day., Disp: 60 tablet, Rfl: 0 bisoprolol (ZEBeta) 5 MG tablet, Take 1 tablet by mouth Daily., Disp: , Rfl: buPROPion XL (WELLBUTRIN XL) 300 MG 24 hr tablet, Take 1 tablet by mouth Daily., Disp: , Rfl: busPIRone (BUSPAR) 10 MG tablet, Take 1 tablet by mouth Every 12 (Twelve) Hours., Disp: , Rfl: busPIRone (BUSPAR) 5 MG tablet, Take 1 tablet by mouth 2 (Two) Times a Day As Needed. Prn anxiety, Disp: , Rfl: Dietary Management Product (Rheumate) capsule, Once daily (Patient taking differently: Take 1 capsule by mouth Daily. Once daily), Disp: 30 capsule, Rfl: 5 gabapentin (NEURONTIN) 300 MG capsule, Take 1 capsule by mouth 2 (two) times a day., Disp: 60 capsule, Rfl: 2 omeprazole (PriLOSEC) 20 MG capsule, Take 1 capsule by mouth Daily., Disp: , Rfl: rosuvastatin (CRESTOR) 5 MG tablet, Take 1 tablet by mouth every night at bedtime., Disp: , Rfl: Past Medical History: Diagnosis Date Anxiety and depression Extremity pain GERD (gastroesophageal reflux disease) Hyperlipidemia Hypertension Joint pain Lumbosacral disc disease Neck pain Osteoarthritis Piriformis syndrome, left 10/27/2019 Sleep apnea CPAP COMPLAINT Spinal stenosis Wears glasses Patient Active Problem List Diagnosis Degeneration of intervertebral disc of lumbar region Lumbar stenosis without neurogenic claudication 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 Lumbar facet arthropathy Spondylolisthesis of lumbar region Myofascial pain TANNER (generalized anxiety disorder) Osteoarthritis of left hip Spondylosis of lumbar region without myelopathy or radiculopathy Piriformis syndrome, left Primary osteoarthritis of left hip HTN (hypertension) Hyperlipidemia Status post total hip replacement, left Acute blood loss anemia, asymptomatic DORIAN (obstructive sleep apnea) Family history of early CAD Family History Problem Relation Age of Onset No Known Problems Mother No Known Problems Father family history includes No Known Problems in her father and mother. Social History Socioeconomic History Marital status: Tobacco Use Smoking status: Never Smokeless tobacco: Never Vaping Use Vaping status: Never Used Substance and Sexual Activity Alcohol use: Defer Drug use: Never Sexual activity: Defer Vital Signs: BP 122/76 (BP Location: Right arm, Patient Position: Sitting, Cuff Size: Adult) Pulse 62 Ht 157.5 cm (62 ) Wt 71.5 kg (157 lb 9.6 oz) SpO2 100% BMI 28.83 kg/m?? Vitals: 09/20/24 1110 Patient Position: Sitting Estimated body mass index is 28.83 kg/m?? as calculated from the following: Height as of this encounter: 157.5 cm (62 ). Weight as of this encounter: 71.5 kg (157 lb 9.6 oz). Physical Exam Vitals reviewed. Constitutional: Appearance: Normal appearance. She is well-developed. HENT: Head: Normocephalic and atraumatic. Eyes: General: No scleral icterus. Pupils: Pupils are equal, round, and reactive to light. Cardiovascular: Rate and Rhythm: Normal rate and regular rhythm. Heart sounds: Normal heart sounds. No murmur heard. Pulmonary: Breath sounds: Normal breath sounds. No wheezing or rhonchi. Musculoskeletal: General: Normal range of motion. Right lower leg: No edema. Left lower leg: No edema. Skin: General: Skin is warm and dry. Capillary Refill: Capillary refill takes less than 2 seconds. Coloration: Skin is not cyanotic. Nails: There is no clubbing. Neurological: Mental Status: She is alert and oriented to person, place, and time. Motor: No weakness. Gait: Gait normal. Psychiatric: Mood and Affect: Mood normal. Behavior: Behavior is cooperative. Thought Content: Thought content normal. Assessment and Plan Diagnoses and all orders for this visit: 1. DORIAN (obstructive sleep apnea) Assessment & Plan: Benefiting from PAP therapy. Plan to continue. Orders: - PAP Therapy 2. Primary hypertension Assessment & Plan: Hypertension is stable and controlled Continue current treatment regimen. Blood pressure will be reassessed in 1 year. Recommendations: ER if symptoms increase and Report if any new/changing symptoms immediately Follow Up Return in about 1 year (around 09/20/2025) for DORIAN. Alexandra Manzano APRN 09/20/2024 Please note that this explicitly excludes time spent on other separate billable services such as performing procedures or test interpretation, when applicable. This note was created using dictation software which occasionally transcribes nonsensical phrases. Please contact the provider if any clarification is needed. documented in this encounter Plan of Treatment Upcoming Encounters Date Type Department Care Team (Late st Contact Info) Description 09/20/2025 10:30 AM EDT Office Visit [facility] [address] [phone] Alexandra Manzano APRN [address] [place] [address] documented as of this encounter Visit Diagnoses Diagnosis DORIAN (obstructive sleep apnea) Obstructive sleep apnea (adult) (pediatric) Primary hypertension Unspecified essential hypertension documented in this encounter Care Teams Medical Physics Researcher Relationship Specialty Start Date End Date Cristela Frost APRN [address] [facility] [address] [place] [address] PCP - General Family Medicine 09/13/18 documented as of this encounter
--- NOTE | 2024-11-12 10:45 | XR_ITS ---
PROCEDURE INFORMATION: Exam: XR Left Ankle Exam date and time: 11/12/2024 10:52 AM Age: 69 years old Clinical indication: Pain; Ankle; Left; Additional info: Left ankle pain, left lateral mallelous pain x 3 days, no known trauma, swelling TECHNIQUE: Imaging protocol: Radiologic exam of the left ankle. Views: 3 or more views. COMPARISON: CR XR FOOT LT MIN 3V 11/12/2024 10:50 AM FINDINGS: Bones/joints: There is no evidence of acute fracture.There is no evidence of malalignment or dislocation. Degenerative changes in the medial and lateral malleolus. Soft tissues: Soft tissue swelling of the ankle IMPRESSION: 1. There is no evidence of acute fracture.There is no evidence of malalignment or dislocation. 2. Degenerative changes in the medial and lateral malleolus.
--- NOTE | 2024-11-12 10:45 | XR_ITS ---
PROCEDURE INFORMATION: Exam: XR Left Foot Exam date and time: 11/12/2024 10:50 AM Age: 69 years old Clinical indication: Pain; Ankle; Left; Additional info: Left foot pain, left lateral mallelous pain x 3 days, swelling, no known trauma TECHNIQUE: Imaging protocol: Radiologic exam of the left foot. Views: 3 or more views. COMPARISON: No relevant prior studies available. FINDINGS: Bones/joints: Degenerative changes in the 1st metatarsal phalangeal joint and IP joint. Degenerative changes in the tarsal bones. There is no evidence of acute fracture.There is no evidence of malalignment or dislocation. . Degenerative changes in the posterior tibiotalar joint . Soft tissues: Normal. IMPRESSION: 1. Degenerative changes in the 1st metatarsal phalangeal joint and IP joint. 2. Degenerative changes in the tarsal bones. 3. There is no evidence of acute fracture.There is no evidence of malalignment or dislocation.
--- OUTSIDE RECORDS SUMMARY | 2024-11-12 10:46 | XMS_ITS | Patient Health Record ---
Author Organization [facility] Address [address] [facility] [address] [place] [address] Care Team Providers Care Therapist Physical Name Role Phone Natasha Cohen Unavailable [phone] Reason For Referral No Information Problems Problem Type SNOMED Code ICD Code Onset Dates Problem Status W/U Status Risk Notes Problem Postoperative care (regime/therapy) (388114992) Aftercare following surgery (Z48.89) 07/03/19 16 Active confirmed Surgical followup visit Problem Postoperative care (regime/therapy) (018162425) Aftercare following surgery (Z48.89) 08/14/19 16 Active confirmed Surgical followup visit Problem Uterovaginal prolapse (61550790) Cervical prolapse (N81.4) 04/24/19 16 Active confirmed Uterine prolapse Plan Of Treatment No Information Medical (General) History Medical History History ICD Code BREAST CANCER HTN GRALISE 600 MG ORAL TABLET, ORAL BUPROPION HCL ER (XL) 300 MG ORAL TABLET EXTENDED RELEASE 24 HOUR, ORAL BYSTOLIC 2.5 MG ORAL TABLET, ORAL CRESTOR 5 MG ORAL TABLET, ORAL OMEPRAZOLE 20 MG ORAL TABLET DELAYED REL EASE, ORAL Surgical History Surgery Date(Month/Year) 16 [facility]
--- OUTSIDE RECORDS SUMMARY | 2024-11-12 10:46 | XMS_ITS | Clinical Summary ---
Author Organization [facility] Address [address] [place] [address] Care Team Providers Care Hot Stick Man Name Role Phone MargotCristela srinivasan Jenny CARABALLO Primary Care Provid er Allergies No known active allergies Medications buPROPion XL (WELLBUTRIN XL) 300 MG 24 hr tablet Take 1 tablet by mouth Daily. 04/20/19 14 Active omeprazole (PriLOSEC) 20 MG capsule Take 1 capsule by mouth Daily. 04/26/19 14 Active rosuvastatin (CRESTOR) 5 MG tablet Take 1 tablet by mouth every night at bedtime. 07/10/19 20 Active bisoprolol (ZEBeta) 5 MG tablet Take 1 tablet by mouth Daily. 07/27/19 20 Active gabapentin (NEURONTIN) 300 MG capsule Take 1 capsule by mouth 2 (two) times a day. 60 capsule 2 09/21/19 20 Active Dietary Management Product (Rheumate) capsuleIndications :Myofascial pain,Lumbar facet arthropathy,Spondy lolisthesis of lumbar region,Osteoarthri tis of left hip, unspecified osteoarthritis type,Lumbar stenosis without neurogenic claudication,Spond ylosis of lumbar region without myelopathy or radiculopathy Once daily 30 capsule 5 07/18/19 21 Active Additional Information Patient taking differently: 1 capsule Oral Daily, Once daily, Informant: Self, Reported on 09/20/2024 busPIRone (BUSPAR) 5 MG tablet Take 1 tablet by mouth 2 (Two) Times a Day As Needed. Prn anxiety Active aspirin 81 MG EC tablet Take 1 tablet by mouth 2 (Two) Times a Day. 60 tablet 10/02/2020 1:25 PM EDT 10/03/19 Active busPIRone (BUSPAR) 10 MG tablet Take 1 tablet by mouth Every 12 (Twelve) Hours. 09/03/19 Active Active Problems Problem Noted Date Diagnosed Date DORIAN (obstructive sleep apnea) 08/22/2022 Assessment & Plan (09/20/2024 4:09 PM EDT): Benefiting from PAP therapy. Plan to continue. Assessment & Plan (08/22/2022 11:59 AM EDT): Benefiting from PAP therapy. Plan to continue. Still waiting on machine from recall. We will also Rx new machine. Family history of early CAD 08/22/2022 Assessment & Plan (08/22/2022 11:59 AM EDT): Echo and stress test 2019. No chest pain. EKG up-to-date. Acute blood loss anemia, asymptomatic 10/02/2020 HTN (hypertension) 10/01/2020 Assessment & Plan (09/20/2024 4:09 PM EDT): Hypertension is stable and controlled Continue current treatment regimen. Blood pressure will be reassessed in 1 year. Hyperlipidemia 10/01/2020 Status post total hip replacement, left 10/02/19 Primary osteoarthritis of left hip 07/20/2020 Overview (07/20/2020): Added automatically from request for surgery [id number] Piriformis syndrome, left 10/27/2019 Osteoarthritis of left hip 09/13/2019 Spondylosis of lumbar region without myelopathy or radiculopathy 09/13/2019 Myofascial pain 08/17/2018 TANNER (generalized anxiety disorder) 08/17/2018 Lumbar facet arthropathy 08/16/2018 Spondylolisthesis of lumbar region 08/16/2018 Degeneration of intervertebral disc of lumbar re gion 01/03/2018 Lumbar stenosis without neurogenic claudication 01/03/2018 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 01/03/2018 Encounters Date Type Department Care Team Description 09/20/2024 11:00 AM EDT Office Visit [facility] [address] [phone] Alexandra Manzano APRN DORIAN (obstructive sleep apnea); Primary hypertension 09/20/2024 Travel 09/07/2024 Telephone [facility] [address] [facility] [place] [place] [phone] Alexandra Manzano APRN Schneider, Autumn Brooke, APRN- APPT REQUEST from Last 3 Months Family History Medical History Relation Name Comments No Known Problems Father No Known Problems Mother Relation Name Status Comments Father Mother Social History Tobacco Use Types Packs/Day Years Used Date Smoking Tobacco: Never Smokeless Tobacco: Never Tobacco Cessation:Counseling Given: Not Answered Alcohol Use Standard Drinks/Week Comments Defer 0 (1 standard drink = 0.6 oz pur e alcohol) PHQ-2 Answer Date Recorded Retired Total Score 0 07/17/2020 Comments No Sex and Gender Information Value Date Recorded Sex Assigned at Not on file Legal Sex Female 1:38 PM EDT Gender Identity Not on file Sexual Orientation Not on file Last Filed Vital Signs Vital Sign Reading Time Taken Comments Blood Pressure 122/76 09/20/2024 11:10 AM EDT Pulse 62 09/20/2024 11:10 AM EDT Temperature 36.4 C (97.5 F) 10/30/2020 2:04 PM EDT Respiratory Rate 16 10/02/2020 8:04 AM EDT Oxygen Saturation 100% 09/20/2024 11:10 AM EDT Inhaled Oxygen Concentration - - Weight 71.5 kg (157 lb 9.6 oz) 09/20/2024 11:10 AM EDT Height 157.5 cm (5' 2 ) 09/20/2024 11:10 AM EDT Body Mass Index 28.83 09/20/2024 11:10 AM EDT Plan of Treatment Upcoming Encounters Date Type Department Care Team (Late st Contact Info) Description 09/20/2025 10:30 AM EDT Office Visit [facility] [address] [phone] Alexandra Manzano APRN [address] [address] Health Maintenance Due Date Last Done Comments DXA SCAN 1955 LIPID PANEL 1955 TDAP/TD VACCINES (1 - Tdap) 09/30/1975 MAMMOGRAM 1996 COLOGUARD 2001 COLON CANCER SCREENING 5 YEA R SIGMOIDOSCOPY 2001 COLONOSCOPY [address]CER SCREENING 2001 CT COLONOGRAPHY 2001 FECAL OCCULT BLOOD TEST 2001 FIT Testing (1 year) 2001 Pneumococcal Vaccine 50+ (1 of 1 - PCV) 2006 ZOSTER VACCINE (1 of 2) 2006 ANNUAL WELLNESS VISIT 08/26/2016 HEPATITIS C SCREENING 08/26/2016 COVID-19 Vaccine (5 - 2023-2 5 season) 2023 08/08/2021, 02/28/2021, 06/13/2020, Additional history exists INFLUENZA VACCINE 01/11/2025 01/26/2024, , 02/28/2022, Additional history exists Medical Devices Implanted Type Area Chimney Builder Helper Device Identifier Shelf Expiration Date Model / Serial / Lot Sut Contrl Tiss Stratafix Spiral Pdo Bidir 1 [id number] - [id number] Implanted:Qty : 1 on 10/01/2020 by Jeffrey Banks MD at [facility] Implant Left: Hip [employer] J AND J [id number] / / NA Totl Hip Hi Demand [place] - [id number] Implanted:Qty : 1 on 10/01/2020 by Jeffrey Banks MD at [facility] Implant Left: Hip PATRICIA JANAK CAPHIPHIDEMA [id number] / / Sut Contrl Tiss Stratafix Spiral Pdo Bidir Mo4 [id number] - [id number] Implanted:Qty : 1 on 10/01/2020 by Jeffrey Banks MD at [facility] Implant Left: Hip [employer] J AND J [id number] / / NA Wax Bone Hemo Aesculap 2.5gm - [id number] Implanted:Qty : 1 on 10/01/2020 by Jeffrey Banks MD at [facility] Implant Left: Hip AESCULAP A B [employer] [id number] / / NA Scrw Hex Lp Trident2 6.5x30mm - [id number] Implanted:Qty : 1 on 10/01/2020 by Jeffrey Banks MD at [facility] Implant Left: Hip PATRICIA JANAK 06/07/2025 [id number] / / [id number] Scrw Hex Lp Trident2 6.5x35mm - [id number] Implanted:Qty : 1 on 10/01/2020 by Jeffrey Banks MD at [facility] Implant Left: Hip PATRICIA JANAK 06/10/2025 [id number] / / [id number] Shll Trident2 Tritanium C/Hl 48mm - [id number] Implanted:Qty : 1 on 10/01/2020 by Jeffrey Banks MD at [facility] Implant Left: Hip PATRICIA JANAK 05/28/2025 [id number] / / [id number] Insrt Hip Trident X3 0deg 36mm Szd Strl - [id number] Implanted:Qty : 1 on 10/01/2020 by Jeffrey Banks MD at [facility] Implant Left: Hip PATRICIA JANAK 07/05/2025 [id number] / / [id number] Stem Fem Accolade2 V40 127d [id number] Sz3 - [id number] Implanted:Qty : 1 on 10/01/2020 by Jeffrey Banks MD at [facility] Implant Left: Hip PATRICIA JANAK 07/12/2025 [id number] / / [id number] Hd Fem/Hip Biolox/Delta V40 Ceram 36mm Pls5 - [id number] Implanted:Qty : 1 on 10/01/2020 by Jeffrey Banks MD at [facility] Implant Left: Hip PATRICIA JANAK 05/10/2025 [id number] / / [id number] Procedures Procedure Name Priority Date/Time Associated Diagnosis Comments SCANNED - LABS 09/01/2024 SCANNED - LABS 09/01/2024 from Last 3 Months Results * LABS SCANNED (09/01/2024) Only the most recent of2 resultswithin the time period is included. Naz Hopper MD LAB BLOOD ORDERABLES Final R esult from Last 3 Months Insurance [facility] MEDICARE ADVANTAGE Member Subscriber Plan / Payer ( fective 2021-Present) Name:Hailey Greenfield Relation to Subscriber:Self Name:Hailey Greenfield Payer ID:[id number] (NAIC) Type:Medicare Replacement Address: [address] Medicare [employer]vantage [employer] PPO Advance Directives * CPR (Attempt to Resuscitate) (Latest Code Status on File) Date Activated Date Inactivated Comments 10/01/2020 8:00 PM 10/02/2020 4:34 PM Question Answer Comments Code Status (Patient has no pulse and is not breathing): CPR (Attempt to Resuscitate) Medical Interventions (Patie nt has pulse or is breathing): Full Care Teams Hot Stick Man Relationship Specialty Start Date End Date Cristela Frost APRN [address] [facility] [address] [address] PCP - General Family Medicine 09/13/18
--- OUTSIDE RECORDS SUMMARY | 2024-11-12 10:46 | XMS_ITS | Encounter Summary ---
[facility] Organization [facility] Address [address] [place] [address] Care Team Providers Care Patient Service Specialist Name Role Phone Cristela Frost APRN Primary Care Provid er Encounter Details Date Type Department Care Team (Latest Contact Info) Description 09/20/2024 Travel Social History Tobacco Use Types Packs/Day Years [...] on file documented as of this encounter Plan of Treatment Upcoming Encounters Date Type Department Care Team (Late st Contact Info) Description 09/20/2025 10:30 AM EDT Office Visit [facility] [address] [phone] Alexandra Manzano APRN [address] [place] [address] documented as of this encounter Visit Diagnoses Not on filedocumented in this encounter Care Teams Patient Service Specialist Relationship Specialty Start Date End Date Cristela Frost APRN [address] [place] [phone] PCP - General Family Medicine 09/13/18 documented as of this encounter
--- OUTSIDE RECORDS SUMMARY | 2024-11-12 10:46 | XMS_ITS | Encounter Summary ---
[facility] Address [address] [place] [address] Care Team Providers Care Senior Tax Accountant Name Role Phone Cristela Frost RASHMI Primary Care Provid er Reason for Visit * Reason Onset Date Comments Alexandra Manzano APRN- APPT REQUEST Encounter Details Date Type Department Care Team (Late st Contact Info) Description 09/07/2024 Telephone [facility] [address] [place] [address] Alexandra Manzano APRN [address] [place] [address] Alexandra Manzano APRN- APPT REQUEST Social History Tobacco Use Types Packs/Day Years [...] on file documented as of this encounter Miscellaneous Notes * Telephone Encounter - Jade Titus RegSched Rep - 09/07/2024 2:52 PM EDT Caller: Hailey Greenfield Relationship to patient: Self Best call back number: [phone] Chief complaint: PT IS NEEDING A NEW RX FOR SOME CPAP ITEMS. Type of visit: F/U Requested date: N/A , NO THURSDAYS Additional notes: LAST SEEN 08/22/22. documented in this encounter Plan of Treatment Upcoming Encounters Date Type Department Care Team (Late st Contact Info) Description 09/20/2025 10:30 AM EDT Office Visit [facility] [address] [place] [phone] Alexandra Manzano APRN [address] [place] [address] documented as of this encounter Visit Diagnoses Not on filedocumented in this encounter Care Teams Senior Tax Accountant Relationship Specialty Start Date End Date Cristela Frost, RASHMI [address] [place] [id number] PCP - General Family Medicine 09/13/18 documented as of this encounter
== END 2024-11-12 23:59 | disposition home or self-care (01) ==
PROVIDERS: PCP Nurse Practitioner Family; Visit Provider Nurse Practitioner Family
DX: M19.072 Primary osteoarthritis, left ankle and foot (principal)
CPT/HCPCS: 73610; 73630